=== PATIENT | female | born 1985 | race Two or more races ===

== ENCOUNTER 2016-08-22 10:13 | Emergency (ER) | payer SELFPAY ==
--- NOTE | 2016-08-22 10:46 | ER Document Report ---
ED Medical Screen (RME) - General Chief Complaint: Lower Abdominal Pain Stated Complaint: ABDOMINAL PAIN Time Seen by Provider: 08/22/16 10:42 Notes: This experiencing lower midline abdominal pains for the past week. She has had a brown vaginal discharge, as well. She has some UTI symptoms. In addition, this morning, she and her were attempting to be intimate and she feels that there is something in her vagina preventing that and she is concerned that she may have a retained tampon in her vagina which could be causing all of her other symptoms. No fevers. Patient has not had any irregular menses. LMP on August 06. BTL. C-sections. TRAVEL OUTSIDE OF THE [place] IN LAST 30 DAYS: No - Related Data Allergies/Adverse Reactions: morphine Allergy (Verified 08/22/16 10:19) Past Medical History Renal/ Medical History: Denies: Hx Peritoneal Dialysis
[2016-08-22 11:10] LABS: ABSOLUTE BASOPHILS # (AUTO) 0.1 10^3/uL (0.0-0.2); ABSOLUTE LYMPHOCYTES (AUTO) 1.3 10^3/uL (0.5-4.7); ABSOLUTE MONOCYTES (AUTO) 0.5 10^3/uL (0.1-1.4); ABSOLUTE NEUT (AUTO) 4.5 10^3/uL (1.7-8.2); BASOPHILS % (AUTO) 1.2 % (0-2); EOSINOPHILS % (AUTO) 0.7 % (0-6); HEMOGLOBIN 15.7 g/dL (12.0-15.5); HGB HCT DIFFERENCE 0.1; LYMPHOCYTES % (AUTO) 20.5 % (13-45); MEAN CORPUSCULAR HEMOGLOBIN 31.7 pg (27.0-33.4); MEAN CORPUSCULAR HGB CONC 33.4 g/dL (32.0-36.0); MEAN CORPUSCULAR VOLUME 95 fl (80-97); MONOCYTES % (AUTO) 7.8 % (3-13); RED BLOOD COUNT 4.96 10^6/uL (3.72-5.28); RED CELL DISTRIBUTION WIDTH 13.5 % (11.5-14.0); SEGMENTED NEUTROPHILS % (AUTO) 69.8 % (42-78); WHITE BLOOD COUNT 6.5 10^3/uL (4.0-10.5)
[2016-08-22 11:29] LABS: ALANINE AMINOTRANSFERASE 23 U/L (9-52); ALBUMIN 4.9 g/dL (3.5-5.0); ALKALINE PHOSPHATASE 73 U/L (38-126); ANION GAP 15 (5-19); ASPARTATE AMINO TRANSFERASE 22 U/L (14-36); BILIRUBIN,DIRECT 0.3 mg/dL (0.0-0.4); BILIRUBIN,TOTAL 0.4 mg/dL (0.2-1.3); BLOOD UREA NITROGEN 11 mg/dL (7-20); CALCIUM 9.3 mg/dL (8.4-10.2); CARBON DIOXIDE 21 mmol/L (22-30); CHLORIDE 110 mmol/L (98-107); CREATININE RESULT 0.73 mg/dL (0.52-1.25); GLUCOSE 98 mg/dL (75-110); LIPASE 52.1 U/L (23-300); POTASSIUM 4.5 mmol/L (3.6-5.0); SODIUM 145.8 mmol/L (137-145); TOTAL PROTEIN 8.2 g/dL (6.3-8.2)
[2016-08-22 11:41] LABS: APPEARANCE,URINE CLEAR; BILIRUBIN,URINE NEGATIVE (NEGATIVE); GLUCOSE, URINE NEGATIVE (NEGATIVE); KETONES,URINE NEGATIVE (NEGATIVE); LEUKOCYTE ESTERASE,URINE NEGATIVE (NEGATIVE); NITRITE,URINE NEGATIVE (NEGATIVE); PROTEIN,URINE NEGATIVE (NEGATIVE); UROBILINOGEN,URINE NEGATIVE mg/dL (<2.0)
[2016-08-22 11:44] LABS: URINE SPECIFIC GRAVITY 1.018
--- NOTE | 2016-08-22 13:01 | ER Document Report ---
ED GI/ - General Mode of Arrival: Ambulatory Information source: Patient TRAVEL OUTSIDE OF THE [place] IN LAST 30 DAYS: No <PETER ONEIL - Last Filed: 08/22/16 13:51> <CADE ENG - Last Filed: 08/22/16 20:04> - General Chief Complaint: Lower Abdominal Pain Stated Complaint: ABDOMINAL PAIN Time Seen by Provider: 08/22/16 10:42 Notes: Patient is a 31 year old female, with a past medical history including section and tubal ligation, who presents to the emergency department complaining of a foreign body in her vagina. Patient states that she was having intercourse with her this morning and they both felt something that was not normal. Patient states that her last tampon use was 2 weeks ago and is worried that she left one in. Patient states she has been vomiting with abdominal pain for the past week and states the pain is in her lower left side. Patient also complains of vaginal discharge and odor that started yesterday. Patient denies having sexual intercourse with anyone other than her recently. (PETER ONEIL) - Related Data Allergies/Adverse Reactions: morphine Allergy (Verified 08/22/16 10:19) Past Medical History - General Information source: Patient - Social History Smoking Status: Current Every Day Smoker Chew tobacco use (# tins/day): No Frequency of alcohol use: Social Drug Abuse: None Family History: Reviewed & Not Pertinent Patient has suicidal ideation: No Patient has homicidal ideation: No Past Surgical History: Reports: Hx Section - X 3, Hx Tubal Ligation - Immunizations Hx Diphtheria, Pertussis, Tetanus Vaccination: Yes <PETER ONEIL - Last Filed: 08/22/16 13:51> Review of Systems - Review of Systems Constitutional: No symptoms reported EENT: No symptoms reported Cardiovascular: No symptoms reported Respiratory: No symptoms reported Gastrointestinal: See HPI, Abdominal pain, Vomiting Genitourinary: No symptoms reported Female Genitourinary: See HPI, Vaginal discharge, Vaginal odor, Other - foriegn body Musculoskeletal: No symptoms reported Skin: No symptoms reported Hematologic/Lymphatic: No symptoms reported Neurological/Psychological: No symptoms reported -: Yes All other systems reviewed and negative <PETER ONEIL - Last Filed: 08/22/16 13:51> Physical Exam <PETER ONEIL - Last Filed: 08/22/16 13:51> <CADE ENG - Last Filed: 08/22/16 20:04> - Vital signs Vitals: Temp Pulse Resp BP Pulse Ox 98.0 F 120 H 16 144/103 H 99 08/22/16 10:19 08/22/16 10:19 08/22/16 10:19 08/22/16 10:19 08/22/16 10:19 - Notes Notes: GENERAL: Alert, interacts well. No acute distress. HEAD: Normocephalic, atraumatic. EYES: Pupils equal, round, and reactive to light. Extraocular movements intact. ENT: Oral mucosa moist, tongue midline. NECK: Full range of motion. Supple. Trachea midline. LUNGS: Clear to auscultation bilaterally, no wheezes, rales, or rhonchi. No respiratory distress. HEART: Regular rate and rhythm. No murmurs, gallops, or rubs. ABDOMEN: Left sided abdomen tender to palpation with left upper quadrant worse than lower, right lower quadrant has some tenderness to palpation. Non- distended. Bowel sounds present in all 4 quadrants. EXTREMITIES: Moves all 4 extremities spontaneously. No edema, radial and dorsalis pedis pulses 2/4 bilaterally. No cyanosis. GENENTOURINARY: Left adnexal tender to palpation, no right sided adnexal tenderness. Retained tampon removed with a small amount of foul smelling thin dark brown fluid. No cervical motion tenderness. NEUROLOGICAL: Alert and oriented x3. Normal speech. PSYCH: Normal affect, normal mood. SKIN: Warm, dry, normal turgor. No rashes or lesions noted. (PETER ONEIL) Course - Laboratory Result Diagrams: 08/22/16 11:00 08/22/16 11:00 <PETER ONEIL - Last Filed: 08/22/16 13:51> - Laboratory Result Diagrams: 08/22/16 11:00 08/22/16 11:00 <CADE ENG - Last Filed: 08/22/16 20:04> - Re-evaluation Re-evalutation: 08/22/16 15:58 CBC grossly unremarkable, CMP shows slight hyponatremia with 145.8, CO2 slightly low 21 otherwise unremarkable, hCG negative, urinalysis negative, gonorrhea and chlamydia not detected. Transvaginal ultrasound shows a 2.0 cm myometrial cyst. No evidence of infection, ovarian torsion, tubo-ovarian abscess. On pelvic examination prior to transvaginal ultrasound patient was found to have a retained foreign body which appeared to be a tampon, this was removed in 1 piece without any difficulty. Patient did not have any cervical motion tenderness although the cervix did appear somewhat friable. No evidence of acute infection. Patient's pain is improving although not completely resolved after the tampon was removed. Patient is recommended not to have sex for the next 48 hours, not put anything in the vagina for the next 48 hours, asked not to douche. Patient will be discharged to home, she has been prescribed a course of Flagyl to take should her abdominal pain persist more than 24 hours. Also prescribed Zofran. (CADE ENG) - Vital Signs Vital signs: Temp Pulse Resp BP Pulse Ox 98.5 F 74 16 147/91 H 97 08/22/16 19:50 08/22/16 19:50 08/22/16 19:50 08/22/16 19:50 08/22/16 19:50 - Laboratory Laboratory results interpreted by az: 08/22/16 08/22/16 11:00 11:00 Hgb 15.7 H Sodium 145.8 H Chloride 110 H Carbon Dioxide 21 L Discharge <PETER ONEIL - Last Filed: 08/22/16 13:51> <CADE ENG - Last Filed: 08/22/16 20:04> - Discharge Clinical Impression: Left lower quadrant abdominal pain of unknown etiology, Myometrial cyst Retained tampon Qualifiers: Encounter type: initial encounter Qualified Code(s): T19.2XXA - Foreign body in vulva and vagina, initial encounter Condition: Stable Disposition: HOME, SELF-CARE Additional Instructions: If you are still having abdominal pain and nausea and vomiting after 24 hours please start taking the Flagyl. Do not take the Flagyl with alcohol as it will make you vomit. If you develop fevers please start taking the antibiotic immediately and return to the emergency department. The Zofran does also under her tongue to help control your nausea. You do have a 2 cm myometrial cyst. Please follow-up with your AUDIT CONSULTANT to have this rechecked in a few months. Do not douche or put anything in your vagina for 48 hours. Please use ibuprofen (Motrin or Advil) 600-800 mg every 8 hours as needed for pain or fever. You may also use acetaminophen (Tylenol) 1000 mg every 4-6 hours as needed for pain or fever. Please be aware that many medications contain acetaminophen, do not exceed a total of 1000 mg of acetaminophen every 6 hours. Prescriptions: Metronidazole [Flagyl 500 mg Tablet] 500 mg PO Q6H #28 tablet Ondansetron [Zofran Odt 4 mg Tablet] 1 - 2 tab PO Q4H PRN #15 tab.rapdis PRN Reason: For Nausea/Vomiting Scribe Attestation: 08/22/16 20:04 I personally performed the services described in the documentation, reviewed and edited the documentation which was dictated to the scribe in my presence, and it accurately records my words and actions. (CADE ENG) Scribe Documentation - Scribe Written by Sladee:: indu Hackett, 08/22/16, 1429 acting as scribe for :: Alla <PETER ONEIL - Last Filed: 08/22/16 13:51>
[2016-08-22 13:11] LABS: CHLAM PCR NOT DETECTED (NOT DETECT)
[2016-08-22] MEDS ORDERED: NORMAL SALINE 1000 ML 1,000 ML IV ONE (13:28)
[2016-08-22] MEDS ORDERED: HYDROMORPHONE HCL INJ/PF 2 MG/ML AMPULE IV ONE (13:28)
[2016-08-22] MEDS ORDERED: ONDANSETRON HCL INJ/PF 4 MG/2 ML SDV IV ONE (13:28)
--- NOTE | 2016-08-22 15:28 | RADIOLOGY REPORT (SQ) ---
EXAM DESCRIPTION: U/S NON OB PEL TV W/DOPPLER COMPLETED DATE/TIME: 08/22/2016 2:53 pm REASON FOR STUDY: L adenexal tenderness, possible TOA COMPARISON: None. TECHNIQUE: Dynamic and static grayscale images acquired of the pelvis via transvaginal approach and recorded on PACS. Additional selected color Doppler and spectral images recorded. LIMITATIONS: None. FINDINGS: UTERUS: 2.0 cm cystic lesion in the fundal myometrium. ENDOMETRIAL STRIPE: No focal or generalized thickening. No masses. CERVIX: No nabothian cysts. RIGHT OVARY: No abnormal masses. RIGHT OVARY DOPPLER: Normal arterial vascular flow without evidence for torsion. LEFT OVARY: No abnormal masses. LEFT OVARY DOPPLER: Normal arterial vascular flow without evidence for torsion. FREE FLUID: Small amount. OTHER: No other significant finding. MEASUREMENTS: UTERUS: 6.5 x 5.0 x 4.6 cm ENDOMETRIAL STRIPE: 5 mm RIGHT OVARY: 4.0 x 2.2 x 2.2 cm LEFT OVARY: 2.5 x 2.3 x 2.0 cm IMPRESSION: Myometrial cyst. TECHNICAL DOCUMENTATION: JOB ID: [id number] 1996[employer]- All Rights Reserved
[2016-08-22 19:51] VITALS: BP 147/91
== END 2016-08-22 16:00 | disposition home or self-care (01) ==
LOC: ER 10:13
DX: T19.2XXA Foreign body in vulva and vagina, initial encounter (principal); N85.8 Other specified noninflammatory disorders of uterus; R10.30 Lower abdominal pain, unspecified; F17.200 Nicotine dependence, unspecified, uncomplicated
CPT/HCPCS: 99284; 96374; 96375; 36415; 83690; 84703; 85025; 80053; 81001; 87491; 87591; 76830; 93976; J1170; J2405; J7030